=== PATIENT | female | born 1995 | race Caucasian/White ===

== ENCOUNTER 2017-04-09 12:26 | Emergency (ER) | payer BC, OTHER ==
--- NOTE | 2017-04-09 13:25 | ED ---
Upper Extremity HPI - General Chief Complaint: Extremity Injury, Upper Stated Complaint: Shoulder Injury Time Seen by Provider: 04/09/17 13:01 Source: patient, RN notes reviewed Mode of arrival: ambulatory Limitations: no limitations - History of Present Illness Initial Comments: 22-year-old female presents emergency Department chief complaint right shoulder pain. Patient states that she went to lift up her backpack and moved awkwardly and felt a snap. Patient states she's had 2 prior surgeries on her right shoulder by orthopedic physician in [place]. Patient states this was secondary to multiple dislocations. She states the pain is similar to when she has dislocated her shoulder in the past. She denies any deformity denies any paresthesias of her right hand or any decreased strength. She states she does have pain with range of motion. She did admit that over the last few weeks she' s been noticing that has not felt right states it's been catching and clicking. Patient states she does have an appointment coming up with her orthopedic doctor. - Related Data Home Medications Medication Instructions Recorded Confirmed Biotin 5 mg PO DAILY 05/05/14 04/09/17 Cholecalciferol [Vitamin D3] 1,000 unit PO DAILY 05/05/14 04/09/17 Ethynodiol D-Ethinyl Estradiol 1 tab PO DAILY 04/09/17 04/09/17 [Zovia 1-35E Tablet] Previous Rx's Medication Instructions Recorded Acetaminophen-Codeine 300-30mg 1 tab PO Q4H PRN #20 tablet 04/09/17 [Tylenol #3] Ibuprofen [Motrin] 600 mg PO Q8HR PRN #30 tab 04/09/17 Allergies Allergy/AdvReac Type Severity Reaction Status Date / Time acetaminophen [From Vicodin] AdvReac Itching Verified 04/09/17 13:50 hydrocodone bitartrate AdvReac Itching Verified 04/09/17 13:45 [From Vicodin] Review of Systems ROS Statement: Those systems with pertinent positive or pertinent negative responses have been documented in the HPI. ROS Other: All systems not noted in ROS Statement are negative. Past Medical History Past Medical History: No Reported History History of Any Multi-Drug Resistant Organisms: None Reported Past Surgical History: Orthopedic Surgery Additional Past Surgical History / Comment(s): rt shoulder x 2 Past Psychological History: No Psychological Hx Reported Smoking Status: Never smoker Past Alcohol Use History: None Reported Past Drug Use History: None Reported General Exam Limitations: no limitations General appearance: alert, in no apparent distress Neck exam: Present: normal inspection, full ROM. Absent: tenderness, meningismus, lymphadenopathy Respiratory exam: Present: normal lung sounds bilaterally. Absent: respiratory distress, wheezes, rales, rhonchi, stridor Cardiovascular Exam: Present: regular rate, normal rhythm, normal heart sounds. Absent: systolic murmur, diastolic murmur, rubs, gallop, clicks Extremities exam: Present: other (Right shoulder there is old surgical incisions noted, there is no obvious deformity no sulcus, patient has limited range of motion secondary to pain.) Neurological exam: Present: reflexes normal. Absent: motor sensory deficit Skin exam: Present: warm, dry, intact, normal color. Absent: rash Course Vital Signs 04/09/17 04/09/17 12:58 13:14 Temperature 98.3 F 98.5 F Pulse Rate 101 H 95 Respiratory 22 17 Rate Blood Pressure 120/59 125/83 O2 Sat by Pulse 96 98 Oximetry Medical Decision Making - Medical Decision Making 22-year-old male present emergency from for right shoulder pain. Patient's x- ray does not show any evidence of dislocation. Patiently placed in a sling as she is concerned about her right shoulder and follow-up with orthopedic doctor at her scheduled appointment. She was advised to call for sooner appointment. Patient be discharged with ibuprofen and child according. Disposition Clinical Impression: Right shoulder pain, Right shoulder strain Disposition: HOME SELF-CARE Condition: Stable Instructions: Shoulder Pain (ED) Additional Instructions: Please return to the Emergency Department if symptoms worsen or any other concerns. Prescriptions: Acetaminophen-Codeine 300-30mg [Tylenol #3] 1 tab PO Q4H PRN #20 tablet PRN Reason: pain Ibuprofen [Motrin] 600 mg PO Q8HR PRN #30 tab PRN Reason: Pain Referrals: Nonstaff,Physician [REFERRING] - 1-2 days Time of Disposition: 13:52
--- NOTE | 2017-04-09 13:46 | XR ---
EXAMINATION TYPE: XR shoulder complete RT DATE OF EXAM: 04/09/2017 COMPARISON: NONE HISTORY: 22 year-old female right shoulder pain. TECHNIQUE: 2 views FINDINGS: No acute fracture, subluxation, or dislocation seen. AC joint appears intact. Visualized right hemith orax is clear. IMPRESSION: 2 views without acute osseous abnormality seen.
[2017-04-09] MEDS ORDERED: IBUPROFEN 600 MG TAB PO STA (13:50)
[2017-04-09] MEDS ORDERED: Acetaminophen-Codeine 300-30mg TAB PO STA (13:50)
[2017-04-09 13:58] VITALS: BP 161/95; PULSE 109; RESP 22; TEMP 98
== END 2017-04-09 14:08 | disposition home or self-care (01) ==
LOC: EC 12:26
DX: S46.911A Strain of unspecified muscle, fascia and tendon at shoulder and upper arm level, right arm, initial encounter (principal); Z79.3 Long term (current) use of hormonal contraceptives; Z79.899 Other long term (current) drug therapy; Z88.5 Allergy status to narcotic agent; Z88.6 Allergy status to analgesic agent; Z98.890 Other specified postprocedural states; X50.0XXA Overexertion from strenuous movement or load, initial encounter
CPT/HCPCS: 99283